=== PATIENT | male | born 1990 | race Caucasian/White ===

== ENCOUNTER 2024-05-30 16:51 | Inpatient (IN) ==
[2024-05-30 17:16] LABS: ABS Basophils 0.1 10^3/uL (0.0-0.1); ABS Eosinophils 0.1 10^3/uL (0.0-0.5); ABS Lymphocytes 1.6 10^3/uL (1.0-4.8); ABS Monocytes 0.5 10^3/uL (0.0-1.1); ABS Neutrophils 9.9 10^3/uL (1.5-7.6); ABS Nucleated RBC 0.01 10^3/ul; Eosinophil % 0.9 %; Hemoglobin 16.1 g/dL (13.2-16.3); Lymphocyte % 12.9 %; Mean Corpuscular Hemoglobin 29.7 pg (27-33); Mean Corpuscular Hgb Conc 34.3 g/dL (31-36); Mean Corpuscular Volume 86.5 fL (80-97); Mean Platelet Volume 7.7 fL (7.5-11.2); Nucleated Red Blood Cells % 0.1 %/100WBC (0.0-0.8); Platelet Count 279 10^3/uL (150-450); Red Blood Count 5.43 10^6/uL (4.06-5.63); Red Cell Distribution Width 13.6 % (12-17); White Blood Count 12.1 10^3/uL (3.6-10.2)
[2024-05-30 17:30] LABS: Activated Partial Thrombo Time 33.8 seconds (26.0-38.0); INR 1.03 (0.85-1.14)
[2024-05-30] MEDS: Iodixanol (CONTRAST) 320 MG/ML 100 ML SDV IV ONE (17:56)
[2024-05-30 18:05] LABS: Albumin/Globulin Ratio 1.7 (1-3); Calcium 10.2 mg/dL (8.6-10.3); Creatinine, Serum 0.93 mg/dL (0.67-1.17); Direct Bilirubin 0.1 mg/dL (0.03-0.18); Globulin 2.9 g/dL (2-4); HDL Cholesterol 51.5 mg/dL; Indirect Bilirubin 0.5 mg/dL (0.3-1.0); Potassium 4.1 mmol/L (3.5-5.0); Total Bilirubin 0.6 mg/dL (0.2-1.0); Total Protein 7.9 g/dL (6.4-8.9); eGFR CKD-EPI 109.8 (>60)
[2024-05-30] MEDS: Aspirin EC 325 mg TAB.EC PO ONE (18:37)
[2024-05-30 18:52] LABS: Urine Appearance Clear; Urine Bacteria Absent /HPF (Absent); Urine Bilirubin Negative (Negative); Urine Blood Negative (Negative); Urine Color Yellow; Urine Glucose Negative (Negative); Urine Ketones 2+ (Negative); Urine Nitrite Negative (Negative); Urine Protein 1+ (>=30 mg/dL) (Negative); Urine Red Blood Cell 1+(3-5/hpf) /HPF (0-Trace); Urine Specific Gravity >1.050 (1.002-1.030); Urine Urobilinogen Negative (Negative); Urine White Blood Cell Trace(0-5/hpf) /HPF (0-Trace)
[2024-05-31] MEDS: Enoxaparin 40 MG/0.4 ML SYR SUBCUT SCH (01:21)
[2024-05-31] MEDS ORDERED: Sulfur Hexaflouride MICROSPHR 25 MG VIAL IV PRN (02:47)
[2024-05-31 04:14] LABS: C Reactive Protein 1.29 mg/L (<8.01)
[2024-05-31 06:17] LABS: Hematocrit 43.6 % (38-53); Hemoglobin 14.8 g/dL (13.2-16.3); Mean Corpuscular Hemoglobin 29.6 pg (27-33); Mean Corpuscular Hgb Conc 33.9 g/dL (31-36); Mean Corpuscular Volume 87.3 fL (80-97); Mean Platelet Volume 7.8 fL (7.5-11.2); Platelet Count 259 10^3/uL (150-450); Red Cell Distribution Width 13.7 % (12-17); White Blood Count 6.6 10^3/uL (3.6-10.2)
[2024-05-31 06:47] LABS: Calcium 9.2 mg/dL (8.6-10.3); Creatinine, Serum 0.82 mg/dL (0.67-1.17); Potassium 3.9 mmol/L (3.5-5.0); eGFR CKD-EPI 117.5 (>60)
[2024-05-31 10:52] VITALS: BP 120/73
== END 2024-05-31 14:41 | disposition home or self-care (01) | DRG 54 ==
LOC: ED 16:51 → EDHOLD 23:19 → MEDTELE 05-31 00:24
PROVIDERS: ADMIT Hospitalist; ATTEND Hospitalist